=== PATIENT | male | born 1980 | race Caucasian/White ===

== ENCOUNTER 2023-09-24 23:54 | Observation (INO) | payer BC, OTHER ==
--- NOTE | 2023-09-25 00:51 | ED ---
Recheck HPI - General Chief Complaint: Psychiatric Symptoms Stated Complaint: Mental health Time Seen by Provider: 09/25/23 00:07 Source: patient, RN notes reviewed, old records reviewed Mode of arrival: ambulatory Limitations: no limitations - History of Present Illness Initial Comments: This is a 42-year-old male who is suicidal with plan. Patient does want to shoot himself with a gun. Patient does not have no history of drug or alcohol abuse. No history of significant psychiatric evaluation, patient does have increasing life stress with depression and anxiety. Patient has no current chest pain but is found to have severely elevated blood pressure in triage MD Complaint: abnormal lab (Severely elevated blood pressure), other (Psychiatric illness with depression) -: unknown Symptoms Since Prior Visit: no new symptoms Associated Symptoms: none Treatments Prior to Arrival: other (0) - Related Data Home Medications Medication Instructions Recorded Confirmed HYDROcodone/APAP 7.5-325MG [[place] 1 tab PO Q6HR PRN 08/05/15 08/05/15 7.5-325] Previous Rx's Medication Instructions Recorded Docusate [Colace] 100 mg PO BID #20 capsule 08/05/15 Allergies Allergy/AdvReac Type Severity Reaction Status Date / Time No Known Allergies Allergy Verified 09/24/23 23:59 Review of Systems ROS Statement: Those systems with pertinent positive or pertinent negative responses have been documented in the HPI. ROS Other: All systems not noted in ROS Statement are negative. Past Medical History Past Medical History: Hypertension History of Any Multi-Drug Resistant Organisms: None Reported Past Surgical History: Cholecystectomy, Orthopedic Surgery Additional Past Surgical History / Comment(s): left shoulder, right hand/wrist, knee Past Psychological History: No Psychological Hx Reported Smoking Status: Never smoker Past Alcohol Use History: None Reported Past Drug Use History: None Reported General Exam Limitations: no limitations General appearance: anxious, in distress Head exam: Present: atraumatic, normocephalic, normal inspection Eye exam: Present: normal appearance, PERRL, EOMI. Absent: scleral icterus, conjunctival injection, periorbital swelling ENT exam: Present: normal exam, mucous membranes moist Neck exam: Present: normal inspection. Absent: tenderness, meningismus, lymphadenopathy Respiratory exam: Present: normal lung sounds bilaterally. Absent: respiratory distress, wheezes, rales, rhonchi, stridor Cardiovascular Exam: Present: regular rate, normal rhythm, normal heart sounds. Absent: systolic murmur, diastolic murmur, rubs, gallop, clicks GI/Abdominal exam: Present: soft, normal bowel sounds. Absent: distended, tenderness, guarding, rebound, rigid Extremities exam: Present: normal inspection, full ROM, normal capillary refill. Absent: tenderness, pedal edema, joint swelling, calf tenderness Back exam: Present: normal inspection Neurological exam: Present: alert, oriented X3, CN II-XII intact Psychiatric exam: Present: normal affect, normal mood Skin exam: Present: warm, dry, intact, normal color. Absent: rash Course Vital Signs 09/24/23 09/25/23 09/25/23 23:57 00:43 01:15 Temperature 98 F Pulse Rate 72 77 66 Respiratory 18 16 18 Rate Blood Pressure 242/136 225/109 198/100 O2 Sat by Pulse 99 97 98 Oximetry 09/25/23 01:20 Temperature Pulse Rate 62 Respiratory 18 Rate Blood Pressure 184/95 O2 Sat by Pulse 97 Oximetry - Reevaluation(s) Reevaluation #1: 09/25/23 01:54 Medical records reviewed Reevaluation #2: 09/25/23 01:54 Patient's blood pressure is improving here in the ER Patient remains suicidal Reevaluation #3: 09/25/23 01:54 Patient informed of results questions answered Reevaluation #4: Was pt. sent in by a medical professional or institution (, PA, MEDICATION AIDE, urgent care, hospital, or residential...) When possible be specific @ -no Did you speak to anyone other than the patient for history (EMS, parent, family, police, friend...)? What history was obtained from this source @ -no Did you review nursing and triage notes (agree or disagree)? Why? @ -agree Are old charts reviewed (outside hosp., previous admission, EMS record, old EKG, old radiological studies, urgent care reports/EKG's, residential records)? Report findings @ -yes Differential Diagnosis (chest pain, altered mental status, abdominal pain women, abdominal pain men, vaginal bleeding, weakness, fever, dyspnea, syncope, headache, dizziness, GI bleed, back pain, seizure, CVA, palpatations, mental health, musculoskeletal)? @ -prior EKG interpreted by me (3pts min.). @ -yes X-rays interpreted by me (1pt min.). @ -yes negative for acute disease CT interpreted by me (1pt min.). @ -no U/S interpreted by me (1pt. min.). @ -no What testing was considered but not performed or refused? (CT, X-rays, U/S, labs)? Why? @ -none What meds were considered but not given or refused? Why? @ -none Did you discuss the management of the patient with other professionals (professionals i.e. , PA, MEDICATION AIDE, lab, RT, psych nurse, rn social work, section beamer, teacher, earth science technical officer, family caseworker)? Give summary @ -no Was smoking cessation discussed for >3mins.? @ -no Was critical care preformed (if so, how long)? @ -no Were there social determinants of health that impacted care today? How? (Homelessness, low income, unemployed, alcoholism, drug addiction, transportation, low edu. Level, literacy, decrease access to med. care, detention, rehab)? @ -none Was there de-escalation of care discussed even if they declined (Discuss DNR or withdrawal of care, Hospice)? DNR status @ -no What co-morbidities impacted this encounter? (DM, HTN, Smoking, COPD, CAD, Cancer, CVA, ARF, Chemo, Hep., AIDS, mental health diagnosis, sleep apnea, morbid obesity)? @ -none Was patient admitted / discharged? Hospital course, mention meds given and route, prescriptions, significant lab abnormalities, going to OR and other pertinent info. @ - Undiagnosed new problem with uncertain prognosis? @ -no Drug Therapy requiring intensive monitoring for toxicity (Heparin, Nitro, Insulin, Cardizem)? @ -no Were any procedures done? @ -no Diagnosis/symptom? @ - Acute, or Chronic, or Acute on Chronic? @ -Acute Uncomplicated (without systemic symptoms) or Complicated (systemic symptoms)? @ -Complicated Side effects of treatment? @ -no Exacerbation, Progression, or Severe Exacerbation? @ -exacerbation Poses a threat to life or bodily function? How? (Chest pain, USA, CT, pneumonia, PE, COPD, DKA, ARF, appy, cholecystitis, CVA, Diverticulitis, Homicidal, Suicidal, threat to staff... and all critical care pts) @ -yes Reevaluation #5: Differential Chest Pain: Stable Angina, Unstable Angina, STEMI, NSTEMI Aortic Dissection, Pneumothorax, Musculoskeletal, Esophageal Spasm GERD, Cholecystitis, Pancreatitis, Zoster, this is not meant to be an all-inclusive list. - Consultations Consultation #1: Spoke with bala who agrees to admit this patient Medical Decision Making - Medical Decision Making 42 male who presents to the ER for significant anxiety and stress reaction, patient is depressed with anxiety and suicidal. But patient has severe new onset hypertension with hypertensive urgency blood pressure 240/140, patient is on multiple blood pressure medications and this is a new onset hypertension patient will be admitted for blood pressure control and psychiatric evaluation - Lab Data Result diagrams: 09/25/23 01:02 Lab Results 09/25/23 09/25/23 09/25/23 Range/Units 00:39 01:02 01:02 WBC 9.1 (3.8-10.6) k/uL RBC 5.33 (4.30-5.90) m/uL Hgb 15.4 (13.0-17.5) gm/dL Hct 44.3 (39.0-53.0) % MCV 83.2 (80.0-100.0) fL MCH 29.0 (25.0-35.0) pg MCHC 34.8 (31.0-37.0) g/dL RDW 14.0 (11.5-15.5) % Plt Count 205 (150-450) k/uL MPV 8.2 Neutrophils % 69 % Lymphocytes % 21 % Monocytes % 6 % Eosinophils % 1 % Basophils % 1 % Neutrophils # 6.3 (1.3-7.7) k/uL Lymphocytes # 1.9 (1.0-4.8) k/uL Monocytes # 0.5 (0-1.0) k/uL Eosinophils # 0.1 (0-0.7) k/uL Basophils # 0.1 (0-0.2) k/uL Troponin I 0.044 H* (0.000-0.034) ng/mL Urine Opiates Screen Not Detected (NotDetected) Ur Oxycodone Screen Not Detected (NotDetected) Urine Methadone Screen Not Detected (NotDetected) Ur Barbiturates Screen Not Detected (NotDetected) U Tricyclic Antidepress Not Detected (NotDetected) Ur Phencyclidine Scrn Not Detected (NotDetected) Ur Amphetamines Screen Not Detected (NotDetected) U Methamphetamines Scrn Not Detected (NotDetected) U Benzodiazepines Scrn Not Detected (NotDetected) Urine Cocaine Screen Not Detected (NotDetected) U Marijuana (THC) Screen Not Detected (NotDetected) - EKG Data -: EKG Interpreted by Me (EKG is sinus bradycardia 50 SD 136 QRS 107 QTc 459) - Radiology Data Radiology results: report reviewed (Chest x-ray is negative for acute disease), image reviewed Critical Care Time Critical Care Time: Yes Total Critical Care Time: 31 Disposition Clinical Impression: Acute anxiety, Depression, Suicidal ideation, Hypertension, Hypertensive urgency Disposition: ADMITTED IP TO THIS [facility] Condition: Serious Is patient prescribed a controlled substance at d/c from ED?: No Referrals: None,Stated [Primary Care Provider] - 1-2 days Time of Disposition: 02:00
[2023-09-25] MEDS: LABETALOL 5 MG/ML VIAL MDV IVP STA (01:01)
[2023-09-25] MEDS: SODIUM CHLORIDE 0.9% 500 ML 500 ML IV STA (01:01)
[2023-09-25 01:29] LABS: Basophils # (A) 0.1 k/uL (0-0.2); Basophils % (A) 1 %; Eosinophils # (A) 0.1 k/uL (0-0.7); Eosinophils % (A) 1 %; HCT 44.3 % (39.0-53.0); HGB 15.4 gm/dL (13.0-17.5); Lymphocytes # (A) 1.9 k/uL (1.0-4.8); Lymphocytes % (A) 21 %; MCHC 34.8 g/dL (31.0-37.0); MCV 83.2 fL (80.0-100.0); Mean Platelet Volume 8.2; Monocytes # (A) 0.5 k/uL (0-1.0); Monocytes % (A) 6 %; Neutrophils # (A) 6.3 k/uL (1.3-7.7); Neutrophils % (A) 69 %; Platelet Count 205 k/uL (150-450); RBC 5.33 m/uL (4.30-5.90); WBC 9.1 k/uL (3.8-10.6)
[2023-09-25 01:41] LABS: Amphetamine Screen,Urine Not Detected (NotDetected); Barbiturate Screen,Urine Not Detected (NotDetected); Benzodiazepines Screen,Urine Not Detected (NotDetected); Cocaine Screen,Urine Not Detected (NotDetected); Methadone Screen, Urine Not Detected (NotDetected); Opiate Screen,Urine Not Detected (NotDetected); Oxycodone Screen, Urine Not Detected (NotDetected); Phencyclidine Screen,Urine Not Detected (NotDetected); Tricyclic Antidepressant,Urine Not Detected (NotDetected); Urn Cannabinoid Scrn Not Detected (NotDetected)
[2023-09-25] MEDS ORDERED: ONDANSETRON 4 MG/2 ML VIAL IVP PRN (01:51)
[2023-09-25] MEDS ORDERED: NALOXONE 0.4 MG/ML 1 ML VIAL IV PRN (01:51)
[2023-09-25 02:09] LABS: ALT 43 U/L (4-49); AST 52 U/L (17-59); African American GFR (CKD) >90 (>60 ml/min/1.73 sqM); Alcohol <10 mg/dL; Alkaline Phosphatase 95 U/L (38-126); Anion Gap 10 mmol/L; Blood Urea Nitrogen 16 mg/dL (9-20); Calcium 9.2 mg/dL (8.4-10.2); Carbon Dioxide 24 mmol/L (22-30); Chloride 108 mmol/L (98-107); Glucose 107 mg/dL (74-99); Magnesium 2.2 mg/dL (1.6-2.3); Non-African American GFR(CKD) >90 (>60 ml/min/1.73 sqM); Phosphorus 2.6 mg/dL (2.5-4.5); Sodium 142 mmol/L (137-145); Total Bilirubin 0.8 mg/dL (0.2-1.3)
[2023-09-25 02:17] LABS: NT-Pro-B-Type Natriuretic Pept 106 pg/mL
[2023-09-25] MEDS: hydrALAZINE HCL 20 MG/ML 1 ML VIAL IVP STA (02:38)
--- NOTE | 2023-09-25 04:28 | P.HPIM ---
History of Present Illness H&P Date: 09/25/23 Patient is a 42-year-old male with no known PMH who presents to the emergency room with complaints of depression and suicidal ideation. The patient reports that his recently left with his children and that he has not been able to see them for the past 5 days and that he is worried that she will take them from him permanently. He is a and has been contemplating suicide and has a concrete plan, although states that he does not wish to act due to the sake of his children. He has not seen a physician for over 10 years. He does report intermittent sharp left-sided chest discomfort which is nonexertional for the past several months. Denied experiencing shortness of breath, nausea, vomiting, diaphoresis, or dizziness. In the emergency room, the patient's blood pressure upon arrival was 242/136 with pulse 72. The patient does not have a prior history of high blood pressure. EKG revealed sinus bradycardia at 50 bpm with LVH and T wave inversion in leads II and V6. Laboratory evaluation was remarkable for troponin 0.044 with serum alcohol less than 10, potassium 3.0, and glucose 107. ED documentation reviewed and case discussed with ED provider. Review of systems: Pertinent positives and negatives as discussed in HPI, a complete review of systems was performed and all other systems are negative. Physical examination: Vital signs reviewed General: non toxic, no distress, appears at stated age, obese Derm: no unusual rashes/lesions, warm Head: atraumatic, normocephalic, symmetric Eyes: EOMI, no lid lag, anicteric sclera, pupils equal round reactive to light ENT: Nose and ears atraumatic Neck: No cervical lymphadenopathy, trachea midline, supple Mouth: no lip lesion, mucus membranes moist Cardiovascular: S1S2 reg, no murmur, positive dorsalis pedis pulse bilateral, no edema Lungs: CTA bilateral, no rhonchi, no rales, no accessory muscle use Abdominal: soft, nontender to palpation, no guarding Ext: muscle strength 5 out of 5 in all 4 extremities grossly, no gross muscle atrophy, no contractures, Neuro: CN II-XI grossly intact, no gross focal neuro deficits Psych: Alert, oriented, tearful affect Assessment: Hypertensive urgency Elevated troponin, suspect due to uncontrolled hypertension Depression and suicidal ideation Hypokalemia Imaging: EKG revealed sinus bradycardia at 50 bpm with LVH and T wave inversion in leads II and V6. Data Review: Laboratory evaluation was remarkable for troponin 0.044 with serum alcohol less than 10, potassium 3.0, and glucose 107. Plan: Start patient on Norvasc and avoid rapid overcorrection Cardiology consulted Trend troponin Cardiac monitoring Suicide precautions and psychiatry consult Replace potassium Check lipid panel and A1c DVT prophylaxis: Lovenox subcu The patient is admitted with an anticipated less than 2 midnight stay for evaluation of hypertensive urgency CODE STATUS: Full Code Discussed with: Patient Anticipated discharge place: Home Past Medical History Past Medical History: Hypertension History of Any Multi-Drug Resistant Organisms: None Reported Past Surgical History: Cholecystectomy, Orthopedic Surgery Additional Past Surgical History / Comment(s): left shoulder, right hand/wrist, knee Past Psychological History: No Psychological Hx Reported Smoking Status: Never smoker Past Alcohol Use History: None Reported Past Drug Use History: None Reported Medications and Allergies Home Medications Medication Instructions Recorded Confirmed Type Docusate [Colace] 100 mg PO BID #20 capsule 08/05/15 Rx HYDROcodone/APAP 7.5-325MG [[place] 1 tab PO Q6HR PRN 08/05/15 08/05/15 History 7.5-325] Allergies Allergy/AdvReac Type Severity Reaction Status Date / Time No Known Allergies Allergy Verified 09/24/23 23:59 Physical Exam Vitals: Vital Signs Temp Pulse Resp BP Pulse Ox 09/25/23 03:59 58 L 16 180/88 98 09/25/23 02:48 58 L 16 184/80 98 09/25/23 02:14 59 L 16 189/99 99 09/25/23 01:20 62 18 184/95 97 09/25/23 01:15 66 18 198/100 98 09/25/23 00:43 77 16 225/109 97 09/24/23 23:57 98 F 72 18 242/136 99 Intake and Output 09/24/23 09/24/23 09/25/23 14:59 22:59 06:59 Other: Weight 111.13 kg Results CBC & Chem 7: 09/25/23 01:02 09/25/23 01:02 Labs: Abnormal Lab Results - Last 24 Hours (Table) 09/25/23 09/25/23 Range/Units 01:02 01:02 Potassium 3.0 L (3.5-5.1) mmol/L Chloride 108 H (98-107) mmol/L Glucose 107 H (74-99) mg/dL Troponin I 0.044 H* (0.000-0.034) ng/mL
[2023-09-25] MEDS: POTASSIUM CHLORIDE ER 20 MEQ TAB.ER PO STA (04:36)
--- NOTE | 2023-09-25 07:45 | P.PN ---
Subjective Progress Note Date: 09/25/23 Hospital course: Patient is a very pleasant 42-year-old male with no reported past medical history but has not been evaluated by a physician in just over 10 years. He initially presented to the emergency department with complaints of depression and suicidal ideations reporting that his recently left with his children and he is afraid that she is going to take them from home permanently. Patient reported that he is a and has been contemplating suicide and does have a concrete plan although he would not like to act upon this plan due to the sake of his children. Upon arrival to the emergency department patient underwent evaluation and was found to have hypertensive urgency with a blood pressure of 242/136 with a heart rate of 72. Patient also admitted that he had been experiencing pain to his left anterior chest intermittently over the past several months. EKG was completed revealing sinus bradycardia at 50 bpm with T wave inversion in lateral leads I, II, and aVL and T wave abnormality in V6 with left ventricular hypertrophy, there was no noted ST depression or elevation upon personal review and interpretation. Labs were completed and reviewed. CBC unremarkable. BMP revealing hypokalemia with potassium of 3.0 and hyperchlor emia with chloride of 108 otherwise normal findings. Blood glucose was 107. Magnesium normal findings at 2.2. Liver profile unremarkable. Troponin was elevated at 0.044 with proBNP of 106. Urine drug screen was negative. Serum alcohol was also negative at less than 10. Patient was admitted under our services with consultation to cardiology and psychiatry. Physical exam: Patient seen and fully evaluated at bedside this morning. Patient slightly tearful upon assessment. Patient reports just having a rough time with home life recently. He currently denies having any chest pain, palpitations, shortness of breath, or experiencing any numbness/tingling/weakness/swelling in his extremities at this time. Vital signs reviewed and stable. General: Nontoxic, no distress and appears stated age. Derm: Skin warm and dry, normal coloration for ethnicity. Head: Atraumatic, normocephalic and symmetric. Eyes: EOMs intact, no lid lag, and anicteric sclera Mouth: no lip lesions, mucus membranes moist Cardiovascular: regular rate and rhythm with normal S1S2, no murmur, positive posterior tibial pulses bilaterally, and cap refill < 2 seconds. Lungs: Respirations even, regular, and unlabored on room air. Lungs CTA bilaterally, no rhonchi, no rales, no wheezing, and no accessory muscle usage. Abdominal: soft, nontender to palpation, no guarding, no appreciable organomegaly Ext: ROM intact. No gross muscle atrophy, no edema, no contractures Neuro: Speech clear, face symmetrical and CN II-XII grossly intact with no noted focal neuro deficits Psych: Alert and oriented to person, place, time, and situation. Appropriate and pleasant affect. Assessment and Plan of Care: Chest pain, rule out acute coronary event Elevated troponins Hypertensive urgency -Order placed for aspirin 324 mg p.o. x 1 dose followed by aspirin 81 mg daily and will start patient on atorvastatin 40 mg daily pending lipid profile results. -Order placed for chest x-ray -Cardiology consulted, started patient on clonidine 0.2 mg twice daily -Telemetry monitoring -Troponins trended overnight resulting at 0.044, 0.046, and 0.044. proBNP was 106. -Cardiac diet -Lipid profile and hemoglobin A1c was ordered with a.m. labs. -Echocardiogram to be completed Suicidal ideations with plan Depression -Suicide precautions in place -Consult placed to psychiatry, appreciate recommendations Data and imaging reviewed: -Troponins trended overnight resulting at 0.044, 0.046, and 0.044. -Vital signs reviewed. Blood pressure 173/95, heart rate 56, respiratory rate 18, and SpO2 of 97% on room air. CODE STATUS: Full code DVT prophylaxis: Lovenox Anticipated discharge date: Clinical course to determine Anticipated discharge place: Clinical course to determine Patient was seen independently by Nurse Pracitioner. This document was prepared using [employer] dictation software. Please allow for errors in packager hand, while rare they do occur. Uche Marc NP rendered care for this patient independently, reviewed the findings and plan as documented in the note above. I did not physically speak with or examine the patient on this date. Objective - Vital Signs Vital signs: Vital Signs Temp 98 F 09/24/23 23:57 Pulse 60 09/25/23 04:39 Resp 16 09/25/23 04:39 BP 181/94 09/25/23 04:39 Pulse Ox 98 09/25/23 04:39 FiO2 Intake & Output 09/24/23 09/25/23 09/25/23 18:59 06:59 18:59 Weight 111.13 kg - Labs CBC & Chem 7: 09/26/23 09:00 09/26/23 09:00 Labs: Abnormal Lab Results - Last 24 Hours (Table) 09/25/23 09/25/23 09/25/23 Range/Units 01:02 01:02 02:39 Potassium 3.0 L (3.5-5.1) mmol/L Chloride 108 H (98-107) mmol/L Glucose 107 H (74-99) mg/dL Troponin I 0.044 H* 0.046 H* (0.000-0.034) ng/mL 09/25/23 Range/Units 05:37 Potassium (3.5-5.1) mmol/L Chloride (98-107) mmol/L Glucose (74-99) mg/dL Troponin I 0.044 H* (0.000-0.034) ng/mL
[2023-09-25 08:43] LABS: Chol/HDL Ratio 4.82 Ratio
[2023-09-25] MEDS: ATORVASTATIN 40 MG TAB PO SCH (09:27)
[2023-09-25] MEDS: ENOXAPARIN 40 MG/0.4 ML SYRINGE SQ SCH (09:27)
[2023-09-25] MEDS: amLODIPine 10 MG TAB PO SCH (09:27)
[2023-09-25] MEDS: ASPIRIN 81 MG PO STA (09:27)
[2023-09-25] MEDS: LABETALOL 5 MG/ML VIAL MDV IVP PRN (10:47)
--- NOTE | 2023-09-25 11:31 | XR ---
EXAM: XR chest 1V portable CLINICAL INDICATION:Male, 42 years old with history of chest pain; [facility] COMPARISON: 08/05/2015 TECHNIQUE: Chest single view. FINDINGS: Lines/tubes/devices: EKG leads overlie the chest. No indwelling lines are seen. Cardiomediastinum: Cardiac silhouette appears normal in size. Unremarkable mediastinal silhouette. Vasculature: No increased pulmonary vasculature. Lungs/pleura: No consolidation, sizeable effusion, or visible pneumothorax. Bones/soft tissues: Bony thorax appears grossly intact as seen. Regional soft tissues appear unremarkable. IMPRESSION: No acute cardiopulmonary findings.
[2023-09-25] MEDS: cloNIDine HCL 0.2 MG TAB PO SCH (11:38)
[2023-09-25] MEDS ORDERED: haloperidoL 5 MG TAB PO PRN (14:17)
[2023-09-25] MEDS ORDERED: HALOPERIDOL LACTATE 5 MG/ML 1 ML VIAL IM PRN (14:17)
[2023-09-25] MEDS ORDERED: traZODone HCL 50 MG TAB PO PRN (14:17)
[2023-09-25] MEDS ORDERED: LORazepam 2 MG/ML INJ IM PRN (14:18)
[2023-09-25] MEDS ORDERED: LORazepam 1 MG TAB PO PRN (14:18)
--- NOTE | 2023-09-25 14:19 | CONS ---
CONSULTATION HISTORY OF PRESENT ILLNESS: This is a 42-year-old gentleman, came into the hospital with 2 issues. One was a suicidal ideation. One was accelerated hypertension. His blood pressure still remains elevated. He does not have that much of suicidal thought at this time. Pressure is down to 173/95. He has no known history of hypertension. Does not drink alcohol. Does not smoke on a regular basis. He has had some issues and he is at this time resting comfortably. His suicidal thoughts are also pretty much resolved. He feels better about himself. His laboratory data did not reveal any significant abnormalities. Troponin revealed 0.4, 3 values, all of which were flat. Renal function is normal. Potassium was low, has been supplemented. LDL cholesterol is 123. He is resting comfortably at the time of my evaluation without any chest pain or shortness of breath. PAST MEDICAL HISTORY: Unremarkable for any diabetes or CVA or CAD. There is a question of hypertension, but not on any medications. He is status post cholecystectomy and some orthopedic surgery. MEDICATIONS: None. He does take some pain medications, hydrocodone, and acetaminophen combination. ALLERGIES: He has no known allergies. PHYSICAL EXAMINATION: VITAL SIGNS: Blood pressure is elevated at 210/97 when I first saw him, came down to 173/95. NECK: No JVD. No carotid bruits. CARDIOVASCULAR: S1, S2 heard normally. No significant rub, murmur, or gallop. LUNGS: Clear. ABDOMEN: Soft, nontender. EXTREMITIES: Lower extremities reveal normal pulses. CENTRAL NERVOUS SYSTEM: Normal. IMPRESSION: 1. Accelerated hypertension. 2. Suicidal ideation, which seems to have resolved. RECOMMENDATIONS: I am recommending that we add amlodipine and also I will add clonidine 0.2 mg b.i.d., labetalol 10 mg IV push q.6 hours for systolic of more than 180 and beta colin in the form of metoprolol tartrate 25 mg t.i.d. Blood pressure has already improved. EKG revealed sinus mechanism with nonspecific ST-T changes. Based on clinical course, I will make further recommendations. MMODL / IJN: [id number] /
--- NOTE | 2023-09-25 14:27 | P.CN ---
Psychiatric Consult - . 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 Patient apparently does not have a psychiatric history according to ER report, was endorsing depression and anxiety and increasing life stressors. Patient was have found to have elevated blood pressure 240/140, troponins were elevated x 3. Urine drug screen was negative. Patient was seen laying in bed sleeping was awoken by telegraphic typewriter mechanic. He claims that he has been going through a lot of stress recently, has been feeling depressed and anxious. States that he has not been sleeping well and has not been eating well as well. He states that he believes his fiance was becoming psychotic and paranoid about him. He claims that they were having arguments and that she left him on 09/19. He states that she believes that he was putting cameras in the house and that he was spying on her. He states that "she has mental health struggles". He states that she took their kids and left and did not tell him where she was going. He states that he eventually found out that she was staying at her sister's house, states that her sister told him that he was not allowed to go and visit her and see the kids. He claims that he has been feeling depressed and sad, claims that he was having thoughts of suicide, to shoot himself next to a bonfire and then have himself fall back into the fire afterwards. He states that he is not having any homicidal ideations, Patient denies any auditory, visual hallucinations and denies any paranoia or delusions. Patients admits to using nicotine chew. He states that he does have several guns at home. Patient was fairly tearful on speaking with telegraphic typewriter mechanic about his stressors and about him feeling lonely at home. PAST PSYCHIATRIC HISTORY: Patient has no reported past psychiatric history. Patient denies being on any psychiatric medications. Patient denies any previous psychiatric hospitalizations. Patient denies any psychiatric outpatient follow-up. Claims that he saw a therapist several years ago however is not doing that any longer. Patient denies any history of suicide attempts in the past. Past Medical History: Hypertension History of Any Multi-Drug Resistant Organisms: None Reported Past Surgical History: Cholecystectomy, Orthopedic Surgery Additional Past Surgical History / Comment(s): left shoulder, right hand/wrist, knee Past Psychological History: No Psychological Hx Reported Smoking Status: Never smoker Past Alcohol Use History: None Reported Past Drug Use History: None Reported ALLERGIES: as per EMR. CHEMICAL DEPENDENCY HISTORY: as per HPI. FAMILY PSYCHIATRIC/SUBSTANCE USE HISTORY: Denies SOCIAL HISTORY: Patient was born and raised in [place] and also in [place]. He states that he completed high school and did some college. Claims that he does not have any legal history. 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 He is currently single, he lives alone in a house. MENTAL STATUS EXAM: General Appearance: Patient appears to be overweight, has several tattoos, stated age is alert, pleasant, and cooperative. Patient appears to have fair hygiene and grooming wearing hospital gown with fair eye contact. Behavior: Patient is tall, overweight, wearing glasses, tearful. He became angry when he found out that he was being admitted to the inpatient unit Speech: Patient's speech is fluent and nonpressured. Demanding at times Mood/Affect: Patient reports their mood is "depressed and sad", affect is congruent and tearful Suicidality/Homicidality: Patient denies having any suicidal or homicidal ideation intent or plan. Perceptions: Patient denies any visual hallucinations and denies any auditory hallucinations Though content/process: There is no evidence of any delusional thought content and thought process is linear and goal-directed. Minimizing his suicidal thoughts and depression Memory and concentration: AOX3, grossly intact for the purposes of this session. Can spell "WORLD" backwards Judgment and insight: Poor IMPRESSIONS: Suicidal ideations Major depressive disorder, without psychotic features Nicotine dependence PLAN: -At this time patient DOES meet criteria for inpatient psychiatric admission. -Would recommend the following medication changes/additions: Haldol and Ativan as needed for acute agitation/anxiety. Trazodone 50 mg nightly as needed for insomnia. Will await antidepressant medications until patient is transferred to the mental health unit and cleared by cardiology and medicine. -Continue 1:1 sitter for safety -Cannot leave AMA at this time. Patient will need a petition and certification if attempting to leave AMA. -When medically stable, and cleared by cardiology, patient is eligible for transfer to a psych bed when available. -Communicated plan to patient's nurse -Psychiatry will sign off at this time -Please contact with any questions. 09/25/23 14:18
[2023-09-25] MEDS: METOPROLOL TARTRATE 25 MG TAB PO SCH (15:53)
[2023-09-26 08:07] VITALS: RESP 18
[2023-09-26] MEDS: ASPIRIN 81 MG PO SCH (08:40)
[2023-09-26] MEDS: METOPROLOL TARTRATE 12.5 MG TAB PO SCH (09:07)
[2023-09-26 09:48] LABS: Basophils # (A) 0.1 k/uL (0-0.2); Basophils % (A) 1 %; Eosinophils # (A) 0.1 k/uL (0-0.7); Eosinophils % (A) 2 %; HCT 42.8 % (39.0-53.0); Lymphocytes # (A) 1.7 k/uL (1.0-4.8); Lymphocytes % (A) 25 %; MCH 28.3 pg (25.0-35.0); MCHC 32.7 g/dL (31.0-37.0); MCV 86.5 fL (80.0-100.0); Mean Platelet Volume 8.5; Monocytes # (A) 0.3 k/uL (0-1.0); Monocytes % (A) 5 %; Neutrophils # (A) 4.5 k/uL (1.3-7.7); Neutrophils % (A) 66 %; Platelet Count 183 k/uL (150-450); RBC 4.94 m/uL (4.30-5.90); RDW 14.2 % (11.5-15.5); WBC 6.8 k/uL (3.8-10.6)
[2023-09-26 10:02] LABS: Potassium 3.3 mmol/L (3.5-5.1)
[2023-09-26 10:03] LABS: ALT 39 U/L (4-49); AST 36 U/L (17-59); African American GFR (CKD) >90 (>60 ml/min/1.73 sqM); Albumin 3.6 g/dL (3.5-5.0); Alkaline Phosphatase 72 U/L (38-126); Anion Gap 9 mmol/L; Blood Urea Nitrogen 14 mg/dL (9-20); Carbon Dioxide 26 mmol/L (22-30); Chloride 105 mmol/L (98-107); Glucose 152 mg/dL (74-99); Non-African American GFR(CKD) >90 (>60 ml/min/1.73 sqM); Sodium 140 mmol/L (137-145); Total Bilirubin 0.8 mg/dL (0.2-1.3); Total Protein 6.4 g/dL (6.3-8.2)
--- NOTE | 2023-09-26 10:58 | CA ---
Transthoracic Echo Report Name: Cuate Orourke Age: 42 Gender: M : 1980 Exam Date: 09/25/2023 12:26 Exam Location: [facility] Ht (in): 67 Wt (lb): 245 Ordering Physician: Uche Marc Attending/Referring Phys: Freight Sorter Ayden Weinstein RDCS Procedure CPT: Indications: elevated trop, chest pain, htn urgency Cardiac Hx: Technical Quality: Technically difficult study Contrast 1: Definity Total Dose (mL): 3 Contrast 2: Total Dose (mL): MEASUREMENTS (Male / Female) Normal Values 2D ECHO LV Diastolic Diameter PLAX 5.6 cm 4.2 - 5.9 / 3.9 - 5.3 cm LV Systolic Diameter PLAX 3.6 cm IVS Diastolic Thickness 1.5 cm 0.6 - 1.0 / 0.6 - 0.9 cm LVPW Diastolic Thickness 1.6 cm 0.6 - 1.0 / 0.6 - 0.9 cm LV Relative Wall Thickness 0.6 LVOT Diameter 2.4 cm Aortic Root Diameter 3.9 cm LA Systolic Diameter LX 4.4 cm 3.0 - 4.0 / 2.7 - 3.8 cm DOPPLER AV Peak Velocity 156.0 cm/s AV Peak Gradient 9.7 mmHg AV Mean Velocity 110.6 cm/s AV Mean Gradient 5.4 mmHg AV Velocity Time Integral 31.1 cm LVOT Peak Velocity 126.6 cm/s LVOT Peak Gradient 6.4 mmHg LVOT Velocity Time Integral 28.8 cm LVOT Stroke Volume 129.8 cm??? LVOT Stroke Volume Index 58.9 ml/m??? AV Area Cont Eq vti 4.2 cm??? AV Area Cont Eq pk 3.7 cm??? Mitral E Point Velocity 94.4 cm/s Mitral A Point Velocity 91.1 cm/s Mitral E to A Ratio 1.0 MV Deceleration Time 222.6 ms MV E' Velocity 9.4 cm/s Mitral E to MV E' Ratio 10.0 PV Peak Velocity 108.3 cm/s PV Peak Gradient 4.7 mmHg FINDINGS Left Ventricle Left ventricular ejection fraction is estimated at 55-60 %. Normal left ventricular wall motion. No obvious regional wall motion abnormalities.left ventricular cavity size normal. Moderately increased left ventricular wall thickness. Right Ventricle Normal right ventricular size and function. Right Atrium Normal right atrial size. Left Atrium Mildly increased left atrial diameter. Mitral Valve No mitral regurgitation.mitral valve not well visualized. Aortic Valve No aortic regurgitation.aortic valve not well visualized. Tricuspid Valve No tricuspid regurgitation.tricuspid valve not well visualized. Pulmonic Valve Pulmonic valve not well visualized. Pericardium No pericardial effusion. Aorta Normal size aortic root. CONCLUSIONS Technically difficult study. Definity ECHO contrast used for improved visualization of the endocardial borders (inadequate visualization of two or more contiguous segments). 1. Normal left ventricle size and systolic function with moderate hypertrophy 2. Very limited Doppler study with his inability to make any conclusions Previewed by: Dr. Selvin Vail MD (Electronically Signed) Final Date: 26 September 2023 10:57
[2023-09-26 12:28] VITALS: TEMP 98.2
[2023-09-26 14:17] VITALS: BP 160/76; PULSE 55
--- NOTE | 2023-09-26 15:30 | P.PN ---
Subjective Progress Note Date: 09/26/23 Hospital course: Patient is a very pleasant 42-year-old male with no reported past medical history but has not been evaluated by a physician in just over 10 years. He initially presented to the emergency department with complaints of depression and suicidal ideations reporting that his recently left with his children and he is afraid that she is going to take them from home permanently. Patient reported that he is a and has been contemplating suicide and does have a concrete plan although he would not like to act upon this plan due to the sake of his children. Upon arrival to the emergency department patient underwent evaluation and was found to have hypertensive urgency with a blood pressure of 242/136 with a heart rate of 72. Patient also admitted that he had been experiencing pain to his left anterior chest intermittently over the past several months. EKG was completed revealing sinus bradycardia at 50 bpm with T wave inversion in lateral leads I, II, and aVL and T wave abnormality in V6 with left ventricular hypertrophy, there was no noted ST depression or elevation upon personal review and interpretation. Labs were completed and reviewed. CBC unremarkable. BMP revealing hypokalemia with potassium of 3.0 and hyperchlor emia with chloride of 108 otherwise normal findings. Blood glucose was 107. Magnesium normal findings at 2.2. Liver profile unremarkable. Troponin was elevated at 0.044 with proBNP of 106. Urine drug screen was negative. Serum alcohol was also negative at less than 10. Patient was admitted under our services with consultation to cardiology and psychiatry. Physical exam: Vital signs reviewed and stable. General: Nontoxic, no distress and appears stated age. Derm: Skin warm and dry, normal coloration for ethnicity. Head: Atraumatic, normocephalic and symmetric. Eyes: EOMs intact, no lid lag, and anicteric sclera Mouth: no lip lesions, mucus membranes moist Cardiovascular: regular rate and rhythm with normal S1S2, no murmur, positive po sterior tibial pulses bilaterally, and cap refill < 2 seconds. Lungs: Respirations even, regular, and unlabored on room air. Lungs CTA bilaterally, no rhonchi, no rales, no wheezing, and no accessory muscle usage. Abdominal: soft, nontender to palpation, no guarding, no appreciable organomegaly Ext: ROM intact. No gross muscle atrophy, no edema, no contractures Neuro: Speech clear, face symmetrical and CN II-XII grossly intact with no noted focal neuro deficits Psych: Alert and oriented to person, place, time, and situation. Appropriate and pleasant affect. Assessment and Plan of Care: Chest pain, rule out acute coronary event Elevated troponins Hypertensive urgency -Continue aspirin 81 mg daily and will start patient on atorvastatin 40 mg daily pending lipid profile results. -Chest x-ray was negative for acute cardiopulmonary process. -Echocardiogram showing preserved EF of 55 to 60% with moderate left ventricular hypertrophy. -Cardiology consulted, started patient on clonidine 0.2 mg twice daily and metoprolol 12.5 mg twice daily in addition to amlodipine 10 mg daily started by medicine team. -Telemetry monitoring. Blood pressure is much better controlled this morning with blood pressure 145/82 and heart rate of 53. -Troponins trended overnight resulting at 0.044, 0.046, and 0.044. proBNP was 106. -Cardiac diet -Lipid profile unremarkable with the exception of low HDL of 36.70. Hemoglobin A1c 6%. Suicidal ideations with plan Depression -Suicide precautions in place -Psychiatry following, recommending inpatient admission to mental health unit once cleared by cardiology team. Data and imaging reviewed: -Vital signs reviewed and stable. Blood pressure 145/82, heart rate 53, respiratory rate 18, temp 98.2 F, and SpO2 of 97% on room air. CODE STATUS: Full code DVT prophylaxis: Lovenox Anticipated discharge date: Clinical course to determine Anticipated discharge place: Clinical course to determine Patient was seen independently by Nurse Pracitioner. This document was prepared using [employer] MD dictation software. Please allow for errors in fisher gill net, while rare they do occur. Uche Marc NP rendered care for this patient independently, reviewed the findings and plan as documented in the note above. I did not physically speak with or examine the patient on this date. Objective - Vital Signs Vital signs: Vital Signs Temp 98 F 09/24/23 23:57 Pulse 53 L 09/26/23 07:36 Resp 18 09/26/23 07:36 BP 145/82 09/26/23 07:36 Pulse Ox 97 09/26/23 07:36 FiO2 - Labs CBC & Chem 7: 09/26/23 09:00 09/26/23 09:00 Labs: Abnormal Lab Results - Last 24 Hours (Table) 09/25/23 Range/Units 05:37 HDL Cholesterol 36.70 L (40.00-60.00) mg/dL
--- NOTE | 2023-09-26 15:36 | P.DS ---
Providers Date of admission: 09/25/23 01:51 Expected date of discharge: 09/26/23 Attending physician: Michael Larry MD Consults: 09/25/23 01:51 Consult Physician Routine Consulting Provider: Paras Henao Consult Reason/Comments: SI Do you want consulting provider notified?: Yes Consult Physician Routine Consulting Provider: Selvin Vail Consult Reason/Comments: HTN,elevTrop Do you want consulting provider notified?: Yes Primary care physician: Stated None Hospital Course: Patient medically cleared for discharge to inpatient mental health unit. Discharge Diagnosis: Chest pain, acute coronary event ruled out. Elevated troponins Hypertensive urgency Suicidal ideations with plan Depression Hospital course: Patient is a very pleasant 42-year-old male with no reported past medical history but has not been evaluated by a physician in just over 10 years. He initially presented to the emergency department with complaints of depression and suicidal ideations reporting that his recently left with his children and he is afraid that she is going to take them from home permanently. Patient reported that he is a and has been contemplating suicide and does have a concrete plan although he would not like to act upon this plan due to the sake of his children. Upon arrival to the emergency department patient underwent evaluation and was found to have hypertensive urgency with a blood pressure of 242/136 with a heart rate of 72. Patient also admitted that he had been experiencing pain to his left anterior chest intermittently over the past several months. EKG was completed revealing sinus bradycardia at 50 bpm with T wave inversion in lateral leads I, II, and aVL and T wave abnormality in V6 with left ventricular hypertrophy, there was no noted ST depression or elevation upon personal review and interpretation. Labs were completed and reviewed. CBC unremarkable. BMP revealing hypokalemia with potassium of 3.0 and hyperchloremia with chloride of 108 otherwise normal findings. Blood glucose was 107. Magnesium normal findings at 2.2. Liver profile unremarkable. Troponin was elevated at 0.044 with proBNP of 106. Urine drug screen was negative. Serum alcohol was also negative at less than 10. Patient was admitted under our services with consultation to cardiology and psychiatry. Troponins trended overnight resulting at 0.044, 0.046, and 0.044. Chest x-ray was negative for acute cardiopulmonary process. Lipid profile unremarkable with the exception of low HDL of 36.70. Hemoglobin A1c 6%. Echocardiogram showing preserved EF of 55 to 60% with moderate left ventricular hypertrophy. Patient was evaluated by rehabilitation engineer. Patient was also evaluated by psychiatrist recommending transfer to inpatient mental health unit once medically cleared and cleared by cardiology. Cardiology clearing patient from cardiac perspective for transfer to mental health unit. Medically, patient stable for transfer to mental health unit at this time. Petition and CERT were completed and placed on patient's chart. Patient was started on aspirin 81 mg daily, clonidine 0.2 mg twice daily, atorvastatin 40 mg daily, amlodipine 10 mg daily, and metoprolol 12.5 mg twice daily. Physical exam: Vital signs reviewed and stable. General: Nontoxic, no distress and appears stated age. Derm: Skin warm and dry, normal coloration for ethnicity. Head: Atraumatic, normocephalic and symmetric. Eyes: EOMs intact, no lid lag, and anicteric sclera Mouth: no lip lesions, mucus membranes moist Cardiovascular: regular rate and rhythm with normal S1S2, no murmur, positive posterior tibial pulses bilaterally, and cap refill < 2 seconds. Lungs: Respirations even, regular, and unlabored on room air. Lungs CTA bilaterally, no rhonchi, no rales, no wheezing, and no accessory muscle usage. Abdominal: soft, nontender to palpation, no guarding, no appreciable organomegaly Ext: ROM intact. No gross muscle atrophy, no edema, no contractures Neuro: Speech clear, face symmetrical and CN II-XII grossly intact with no noted focal neuro deficits Psych: Alert and oriented to person, place, time, and situation. Appropriate and pleasant affect. A total of 31 minutes of time were spent preparing this complex discharge summary. Pt was discharged on 09/26/2023 at 3:26 PM. Patient was seen independently by Nurse Practitioner. This document was prepared using [employer] dictation software. Please allow for errors in scorer helper while rare they do occur. Uche Marc NP rendered care for this patient independently, reviewed the findings and plan as documented in the note above. I did not physically speak with or examine the patient on this date. Patient Condition at Discharge: Stable Plan - Discharge Summary New Discharge Prescriptions: New Aspirin 81 mg PO DAILY tab cloNIDine HCL [Catapres] 0.2 mg PO BID tab Atorvastatin [Lipitor] 40 mg PO DAILY tab amLODIPine [Norvasc] 10 mg PO DAILY tab Metoprolol Tartrate [Lopressor] 12.5 mg PO BID tab Discharge Medication List Aspirin 81 mg PO DAILY tab 09/26/23 [Rx] Atorvastatin [Lipitor] 40 mg PO DAILY tab 09/26/23 [Rx] Metoprolol Tartrate [Lopressor] 12.5 mg PO BID tab 09/26/23 [Rx] amLODIPine [Norvasc] 10 mg PO DAILY tab 09/26/23 [Rx] cloNIDine HCL [Catapres] 0.2 mg PO BID tab 09/26/23 [Rx] Activity/Diet/Wound Care/Special Instructions: Patient is medically cleared and cleared by cardiology for transfer to inpatient psychiatric unit. Discharge Disposition: TRANSFER TO PSYCH HOSP/UNIT
--- NOTE | 2023-09-27 06:42 | PN ---
PROGRESS NOTE Mr. Orourke is in sinus rhythm. Blood pressure is in 130 to 140 systolic range, much improved. Current medical regimen is good for him. Echo revealed good systolic function. Advised the patient to refrain from salt, be compliant with medications, and he can be discharged and he will follow up with his PCP as an outpatient. Vitals are stable. S1-S2 heard normally. Lungs are clear. Abdomen and lower extremity exam unchanged. Central nervous system is normal. MMODL / IJN: [id number] /
== END 2023-09-26 22:50 ==
LOC: EC 23:54 → 3SCARD 09-25 01:51
PROVIDERS: ADMIT Internal Medicine; ATTEND Internal Medicine
DX: R45.851 Suicidal ideations (principal); F99 Mental disorder, not otherwise specified; F32.A Depression, unspecified; F41.9 Anxiety disorder, unspecified; I10 Essential (primary) hypertension; R00.1 Bradycardia, unspecified; I16.0 Hypertensive urgency; R07.9 Chest pain, unspecified; R79.89 Other specified abnormal findings of blood chemistry; E87.6 Hypokalemia; E87.8 Other disorders of electrolyte and fluid balance, not elsewhere classified; Z91.85 Personal history of military service; Z79.899 Other long term (current) drug therapy; Z90.49 Acquired absence of other specified parts of digestive tract; Z11.52 Encounter for screening for COVID-19
CPT/HCPCS: 96372; 96374; 96375; 96376; 82075; 36415; 93005; 93306; 83880; 80061; 80053 ×2; 83735 ×2; 84100; 84484; 85025 ×2; 80306; 80320; 83036; 87635; 71045; G0378 ×2; J0360; J1650; Q9957; J1920

== ENCOUNTER 2023-09-26 19:42 | Inpatient (IN) | payer BC, MEDICAID ==
[2023-09-26] MEDS ORDERED: HALOPERIDOL LACTATE 5 MG/ML 1 ML VIAL IM PRN (22:24)
[2023-09-26] MEDS ORDERED: ACETAMINOPHEN TAB 325 MG TAB PO PRN (22:24)
[2023-09-26] MEDS ORDERED: LORazepam 1 MG TAB PO PRN (22:24)
[2023-09-26] MEDS ORDERED: haloperidoL 5 MG TAB PO PRN (22:24)
[2023-09-26] MEDS ORDERED: LORazepam 2 MG/ML INJ IM PRN (22:24)
[2023-09-26] MEDS ORDERED: MAGNESIUM HYDROXIDE 2,400 MG/30 ML CUP PO PRN (22:24)
[2023-09-26] MEDS ORDERED: IBUPROFEN 600 MG TAB PO PRN (22:24)
[2023-09-27] MEDS ORDERED: MAG HYDROX/AL HYDROX/SIMETH 355 ML BOTTLE PO PRN
--- NOTE | 2023-09-27 02:53 | P.CONS ---
History of Present Illness - Reason for Consult Consult date: 09/27/23 - History of Present Illness The patient is a 42-year-old male with recently diagnosed hypertensive urgency who had initially presented to the emergency room with complaints of depression and suicidal ideation. Patient was also noted to have an elevated troponin with hypertensive urgency for which he was admitted to the medical service. He was evaluated by cardiology and deemed cleared for transfer to the mental health unit for depression. The patient underwent an echocardiogram which revealed an intact EF with moderate LVH. The patient was seen in the mental health unit following transfer. He reported no active complaints at the time of interview. Denied experiencing chest discomfort, shortness of breath, fever, chills, cough, nausea, vomiting, abdominal pain, diarrhea. The patient's blood pressure [facility] continues to be high with most recent 167/110. Review of systems: Pertinent positives and negatives as discussed in HPI, a complete review of systems was performed and all other systems are negative. Physical examination: General: non toxic, no distress, appears at stated age, normal weight Derm: no unusual rashes/lesions, no unusual ecchymoses, warm, dry Head: atraumatic, normocephalic, symmetric Eyes: EOMI, no lid lag, anicteric sclera ENT: Nose and ears atraumatic, no thrush, no pharyngeal erythema Neck: trachea midline, supple Mouth: no lip lesion, mucus membranes moist Cardiovascular: S1S2 reg, no murmur, no edema Lungs: CTA bilateral, no rhonchi, no rales , no accessory muscle use Abdominal: soft, nontender to palpation, no guarding Ext: no gross muscle atrophy, no contractures, Neuro: No gross focal neuro deficits noted Psych: Alert, oriented, appropriate affect Assessment: Uncontrolled hypertension Hypokalemia Depression and suicidal ideation Data Review: Laboratory evaluation was reviewed with potassium 3.3, glucose 152, A1c 6.0 Plan: Continue patient on Norvasc and add hydrochlorothiazide Replace potassium and monitor Defer management of depression and suicidal ideation to the primary psychiatry service Thank you for allowing us to participate in the care of this patient. We will follow peripherally. Do not hesitate to contact us with questions. Someone can be reached from the [facility] hospitalist group at all hours of the day at [phone]. Past Medical History Past Medical History: Hypertension Additional Past Medical History / Comment(s): Pt. has a history of S/S of malignant hyperthermia History of Any Multi-Drug Resistant Organisms: None Reported Past Surgical History: Cholecystectomy, Orthopedic Surgery Additional Past Surgical History / Comment(s): left shoulder, right hand/wrist, left knee Past Anesthesia/Blood Transfusion Reactions: Family Hisory of Malignant Hyperthermia Past Psychological History: No Psychological Hx Reported Smoking Status: Never smoker Past Alcohol Use History: None Reported Past Drug Use History: None Reported - Past Family History Mother Additional Family Medical History / Comment(s): Malignant hyperthermia Medications and Allergies Home Medications Medication Instructions Recorded Confirmed Type Aspirin 81 mg PO DAILY tab 09/26/23 Rx Atorvastatin [Lipitor] 40 mg PO DAILY tab 09/26/23 Rx Metoprolol Tartrate [Lopressor] 12.5 mg PO BID tab 09/26/23 Rx amLODIPine [Norvasc] 10 mg PO DAILY tab 09/26/23 Rx cloNIDine HCL [Catapres] 0.2 mg PO BID tab 09/26/23 Rx Allergies Allergy/AdvReac Type Severity Reaction Status Date / Time No Known Allergies Allergy Verified 09/25/23 09:36 Physical Exam Vitals: Vital Signs Temp Pulse Resp BP Pulse Ox 09/27/23 00:05 97.8 F 53 L 16 167/110 98 Intake and Output 09/26/23 09/26/23 09/27/23 14:59 22:59 06:59 Other: Weight 111.13 kg 112.6 kg
[2023-09-27] MEDS: hydrALAZINE HCL 50 MG TAB PO ONE (03:32)
[2023-09-27] MEDS: ATORVASTATIN 40 MG TAB PO SCH (09:34)
[2023-09-27] MEDS: ASPIRIN 81 MG PO SCH (09:34)
[2023-09-27] MEDS: cloNIDine HCL 0.2 MG TAB PO SCH (09:34)
[2023-09-27] MEDS: amLODIPine 10 MG TAB PO SCH (09:34)
[2023-09-27] MEDS: METOPROLOL TARTRATE 12.5 MG TAB PO SCH (09:34)
[2023-09-27] MEDS: hydroCHLOROthiazide 25 MG TAB PO SCH (09:34)
[2023-09-27] MEDS: NICOTINE 14MG/24HR PATCH TRANSDERM SCH (09:35)
[2023-09-27] MEDS ORDERED: MELATONIN 5 MG TABLET PO PRN (09:48)
--- NOTE | 2023-09-27 09:58 | P.HP ---
Psychiatric H&P - . H&P Date: 09/27/23 History & Physical: Allergies Allergy/AdvReac Type Severity Reaction Status Date / Time No Known Allergies Allergy Verified 09/25/23 09:36 Vital Signs Temp 98.1 F 09/27/23 06:45 Pulse 62 09/27/23 06:45 Resp 14 09/27/23 06:45 BP 144/85 09/27/23 06:45 Pulse Ox 98 09/27/23 03:28 FiO2 Intake & Output 09/26/23 09/27/23 09/27/23 18:59 06:59 18:59 Weight 112.6 kg 09/27/23 07:12 IDENTIFYING DATA: Patient is a 42-year-old male. 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 Patient was admitted medically, psychiatry was consulted. As per consult note, "he patient presented to the hospital early this morning with suicidal thoughts, the plan to shoot himself with his gun. Patient apparently does not have a psychiatric history according to ER report, was endorsing depression and anxiety and increasing life stressors. Patient was have found to have elevated blood pressure 240/140, troponins were elevated x 3. Urine drug screen was negative. Patient was seen laying in bed sleeping was awoken by race and sports book writer. He claims that he has been going through a lot of stress recently, has been feeling depressed and anxious. States that he has not been sleeping well and has not been eating well as well. He states that he believes his fiance was becoming psychotic and paranoid about him. He claims that they were having arguments and that she left him on 09/19. He states that she believes that he was putting cameras in the house and that he was spying on her. He states that "she has mental health struggles". He states that she took their kids and left and did not tell him where she was going. He states that he eventually found out that she was staying at her sister's house, states that her sister told him that he was not allowed to go and visit her and see the kids. He claims that he has been feeling depressed and sad, claims that he was having thoughts of suicide, to shoot himself next to a bonfire and then have himself fall back into the fire afterwards. He states that he is not having any homicidal ideations, Patient denies any auditory, visual hallucinations and denies any paranoia or delusions. Patients admits to using nicotine chew. He states that he does have several guns at home. Patient was fairly tearful on speaking with race and sports book writer about his stressors and about him feeling lonely at home." Upon today's interview, he states he's doing good, and that he has accepted that he is here, and he is going to make the best of it. admits that he could benefit from help with his depression and anxiety. he spoke about dealing with severe stressors at this time in his life. we spoke about different medication options. Denies any other concerns. States he slept well last night, and that his appetite is good. States he had one incident, and realized he needed to get help. Patient apologetic for behavior he was having previously. at this time patient is denying any Si or HI at tis time and denying any AH/VH. PAST PSYCHIATRIC HISTORY: Patient has no reported past psychiatric history. Patient denies being on any psychiatric medications. Patient denies any previous psychiatric hospitalizations. Patient denies any psychiatric outpatient follow-up. Claims that he saw a therapist several years ago however is not doing that any longer. Patient denies any history of suicide attempts in the past. PMH:As per ER note ALLERGIES: as per EMR CHEMICAL DEPENDENCY HISTORY: as per HPI FAMILY PSYCHIATRIC/SUBSTANCE USE HISTORY: denies. he does state that his mother did have malignant hyperthermia. SOCIAL HISTORY: Patient was born and raised in [place] and also in [place]. He states that he completed high school and did some college. Claims that he does not have any legal history. 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 He is currently single, he lives alone in a house. General Appearance: Patient appears to be overweight, has several tattoos, stated age is alert, pleasant, and cooperative. Patient appears to have fair hygiene and grooming wearing street clothes Behavior: Patient is sitting without agitation. Speech: Patient's speech is fluent and nonpressured. apologetic Mood/Affect: Patient reports their mood is "same", affect is congruent and constricyted Suicidality/Homicidality: Patient denies having any suicidal or homicidal ideation intent or plan. Perceptions: Patient denies any visual hallucinations and denies any auditory hallucinations Though content/process: There is no evidence of any delusional thought content and thought process is linear and goal-directed. apologetic. Memory and concentration: AOX3, grossly intact for the purposes of this session. Can spell "WORLD" backwards Judgment and insight: Poor STRENGTHS/WEAKNESSES: strength is that patient is resilient. Weakness is that patient has poor judgment and is impulsive INTELLECT: average IMPRESSIONS: Suicidal ideations Major depressive disorder, without psychotic features Nicotine dependence PLAN: -Patient is admitted under voluntary status to [facility]HU for stabilization of psychiatric symptoms and safety. Patient has signed adult voluntary form and medication consent and is placed in patient's chart. -Medications : Zoloft 25mg daily for mood/anxiety, Melatonin 5mg qhs prn for sleep. patient does have a family hx of malignant hyperthermia therefore will be cautious with medications. -Ativan and Haldol PRN for agitation/aggression -Patient was informed of the risks, benefits and side effects of the medication and patient verbally consented to taking the medications. -Internal Medicine consult to perform medical evaluation and physical. will seek further recommendations for HTN. -NRT - nicotine patch -SW on board for discharge planning. Encourage patient to participate in groups to work on coping skills. 09/27/23 09:37 09/27/23 09:55
[2023-09-27] MEDS: SERTRALINE 25 MG TAB PO SCH (10:17)
[2023-09-27] MEDS: SERTRALINE 50 MG TAB PO SCH (10:22)
[2023-09-27 11:08] LABS: African American GFR (CKD) >90 (>60 ml/min/1.73 sqM); Anion Gap 10 mmol/L; Blood Urea Nitrogen 15 mg/dL (9-20); Calcium 9.3 mg/dL (8.4-10.2); Carbon Dioxide 26 mmol/L (22-30); Chloride 106 mmol/L (98-107); Glucose 107 mg/dL (74-99); Non-African American GFR(CKD) >90 (>60 ml/min/1.73 sqM); Potassium 3.2 mmol/L (3.5-5.1); Sodium 142 mmol/L (137-145)
[2023-09-27 16:57] LABS: Chol/HDL Ratio 3.73 Ratio
[2023-09-27 17:09] LABS: LDL Cholesterol,Calculated 78.3 mg/dL (0.0-131.0)
[2023-09-28 17:22] LABS: African American GFR (CKD) >90 (>60 ml/min/1.73 sqM); Anion Gap 11 mmol/L; Blood Urea Nitrogen 19 mg/dL (9-20); Calcium 9.4 mg/dL (8.4-10.2); Carbon Dioxide 28 mmol/L (22-30); Chloride 102 mmol/L (98-107); Glucose 70 mg/dL (74-99); Non-African American GFR(CKD) >90 (>60 ml/min/1.73 sqM); Potassium 3.2 mmol/L (3.5-5.1); Sodium 141 mmol/L (137-145)
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
[2023-09-29 09:05] VITALS: PULSE 62; RESP 18; TEMP 97.3
[2023-09-29] MEDS: SERTRALINE 25 MG TAB PO ONE (09:50)
[2023-09-29] MEDS: POTASSIUM CHLORIDE ER 20 MEQ TAB.ER PO STA (09:50)
--- NOTE | 2023-09-29 10:08 | P.DS ---
Providers Date of admission: 09/26/23 22:17 Expected date of discharge: 09/29/23 Attending physician: Paras Henao MD Consults: 09/26/23 22:24 Consult Physician Routine Consulting Provider: Maxi Physician Consult Reason/Comments: H&P and medical Do you want consulting provider notified?: Yes Primary care physician: Stated None - Discharge Diagnosis(es) (1) Major depressive disorder without psychotic features Current Visit: Yes Status: Acute Priority: High (2) Suicidal ideation Current Visit: No Status: Acute Priority: High (3) Nicotine dependence Current Visit: No Status: Ruled-out Priority: Low Hospital Course: Admission HPI: Admission note was completed by chief writer "Patient presented to the hospital on 09/24. Patient was admitted medically, psychiatry was consulted. As per consult note, "he patient presented to the hospital early this morning with suicidal thoughts, the plan to shoot himself with his gun. Patient apparently does not have a psychiatric history according to ER report, was endorsing depression and anxiety and increasing life stressors. Patient was have found to have elevated blood pressure 240/140, troponins were elevated x 3. Urine drug screen was negative. Patient was seen laying in bed sleeping was awoken by chief writer. He claims that he has been going through a lot of stress recently, has been feeling depressed and anxious. States that he has not been sleeping well and has not been eating well as well. He states that he believes his fiance was becoming psychotic and paranoid about him. He claims that they were having arguments and that she left him on 09/19. He states that she believes that he was putting cameras in the house and that he was spying on her. He states that "she has mental health struggles". He states that she took their kids and left and did not tell him where she was going. He states that he eventually found out that she was staying at her sister's house, states that her sister told him that he was not allowed to go and visit her and see the kids. He claims that he has been feeling depressed and sad, claims that he was having thoughts of suicide, to shoot himself next to a bonfire and then have himself fall back into the fire afterwards. He states that he is not having any homicidal ideations, Patient denies any auditory, visual hallucinations and denies any paranoia or delusions. Patients admits to using nicotine chew. He states that he does have several guns at home. Patient was fairly tearful on speaking with chief writer about his stressors and about him feeling lonely at home." Upon today's interview, he states he's doing good, and that he has accepted that he is here, and he is going to make the best of it. admits that he could benefit from help with his depression and anxiety. he spoke about dealing with severe stressors at this time in his life. we spoke about different medication options. Denies any other concerns. States he slept well last night, and that his appetite is good. States he had one incident, and realized he needed to get help. Patient apologetic for behavior he was having previously. at this time patient is denying any Si or HI at tis time and denying any AH/VH. " Hospital course: Upon admission to the unit patient was directable and agreeable to commence treatment and signed adult voluntary form. Patient got along well with other patients on the unit and followed unit protocol. Patient was compliant with the medications and denied any side effects throughout hospital course. Patient was started on Zoloft and increase the dose of 50 mg daily for mood/anxiety. Patient was also on melatonin nightly as needed for sleep however did not take this. Patient spoke of his stressors and engaged in therapy both group and individual. Patient was also seen by medical team for history and physical exam. Patients BP was elevated prior to admission and was seen by medicine and cardiology and cleared. They will be continuing to adjust patients medications prior to d/c today and will be following up with his PCP. Throughout the course of the hospitalization patient gradually improved with regards to mood, anxiety, suicidal thoughts, sleep and became more future oriented with improved insight and judgment. On the day of discharge patient denied any suicidal or homicidal ideations intent or plan denied any auditory or visual hallucinations. Patient endorsed wanting to live for his children. The patient claims that he has a gun safe and the guns are locked away and that he [place] the [place] the [place]. He claims that he is willing to have his younger brother stay with him and verify that the guns/weapons are secured, SW to make contact with brother and confirm this. Patient denied any paranoia and did not endorse any delusions. Patient does not have a significant history of substance abuse and was counseled on abstaining from all substances including alcohol and marijuana. Patient was also counseled on the medications and need for regular compliance and was encouraged to follow-up with their outpatient appointment for mental health and also for primary care. Prior to discharge a family meeting will be arranged by social work assistant to answer any questions and ensure safety upon discharge. Mental status exam: General Appearance: Patient appears to be overweight, has glasses and longer hair, stated age is alert, pleasant, and cooperative. Patient is in no acute distress and has improved hygiene and grooming Behavior: Patient is calmly seated without any agitated behavior. Speech: Patient's speech is fluent and nonpressured. Mood/Affect: Patient reports their mood is "better", affect is congruent and euthymic. Suicidality/Homicidality: Patient denies having any suicidal or homicidal ideation intent or plan. Perceptions: Patient denies any auditory or visual hallucinations. Though content/process: There is no evidence of any delusional thought content and thought process is linear and goal-directed. More future oriented Memory and concentration: AOX3, grossly intact for the purposes of this session. Can spell "WORLD" backwards correctly. Judgment and insight: improved with guarded prognosis Impression: Suicidal ideations Major depressive disorder, without psychotic features Nicotine dependence Plan: -Continue with discharge today as patient has improved and stabilized psychiatrically and is not currently an imminent threat to himself and/or others. Patient will remain at chronically elevated risk for harm to self and/or others due to his impulsivity. -Continue medications: Zoloft 50 mg daily for mood/anxiety. -Patient was counseled on the need for medication compliance and appropriate follow-up at mental health and also primary care for medical issues. Patient verbalized understanding and agreed. -Social work to coordinate patient's discharge today to the care of his brother who will be staying with him at home and ensure that the environment is safe and guns are secured. Social work also to arrange for patients follow up appointments for psychiatric care along with follow up with primary care provider. -Patient counseled on abstaining from recreational drugs and marijuana and alcohol. Was informed/educated on the adverse effects on their physical and mental health. Patient verbally agreed and understood. -Patient was instructed to return to the hospital or seek immediate medical care if their psychiatric or medical symptoms do worsen or reoccur. Allergies Allergy/AdvReac Type Severity Reaction Status Date / Time No Known Allergies Allergy Verified 09/25/23 09:36 Laboratory Results Sodium 141 mmol/L (137-145) 09/28/23 16:37 Potassium 3.2 mmol/L (3.5-5.1) L 09/28/23 16:37 Chloride 102 mmol/L (98-107) 09/28/23 16:37 Carbon Dioxide 28 mmol/L (22-30) 09/28/23 16:37 Anion Gap 11 mmol/L 09/28/23 16:37 BUN 19 mg/dL (9-20) 09/28/23 16:37 Creatinine 1.01 mg/dL (0.66-1.25) 09/28/23 16:37 Est GFR (CKD-EPI)AfAm >90 (>60 ml/min/1.73 sqM) 09/28/23 16:37 Est GFR (CKD-EPI)NonAf >90 (>60 ml/min/1.73 sqM) 09/28/23 16:37 Glucose 70 mg/dL (74-99) L 09/28/23 16:[address] Glu mg/dL 131 mg/dL 09/27/23 10:08 Hemoglobin A1c 6.2 % (<=6.0) H 09/27/23 10:08 Calcium 9.4 mg/dL (8.4-10.2) 09/28/23 16:37 Triglycerides 154.00 mg/dL (0.00-149.00) H 09/27/23 10:08 Cholesterol 149.00 mg/dL (0.00-200.00) 09/27/23 10:08 LDL Cholesterol, Calc 78.3 mg/dL (0.0-131.0) 09/27/23 10:08 VLDL Cholesterol, Calc 30.80 mg/dL (5.00-40.00) 09/27/23 10:08 HDL Cholesterol 39.90 mg/dL (40.00-60.00) L 09/27/23 10:08 Cholesterol/HDL Ratio 3.73 Ratio 09/27/23 10:08 TSH 2.460 mIU/L (0.465-4.680) 09/27/23 10:08 Vital Signs Temp 97.3 F L 03/29/24 08:25 Pulse 62 09/29/23 08:25 Resp 18 09/29/23 08:25 BP 163/78 09/29/23 09:21 Pulse Ox 98 09/29/23 08:25 FiO2 Patient Condition at Discharge: Stable Plan - Discharge Summary Discharge Rx Participant: Yes New Discharge Prescriptions: New Atorvastatin [Lipitor] 40 mg PO DAILY 30 Days #30 tab Melatonin 5 mg PO HS PRN tab PRN Reason: sleep Ibuprofen [Motrin] 600 mg PO Q6HR PRN tab PRN Reason: Moderate Pain (Scale 4 To 6) Sertraline [Zoloft] 50 mg PO DAILY 30 Days #30 tab Continue Aspirin 81 mg PO DAILY 30 Days #30 tab Discontinued Atorvastatin [Lipitor] 40 mg PO DAILY tab No Action cloNIDine HCL [Catapres] 0.2 mg PO BID tab amLODIPine [Norvasc] 10 mg PO DAILY tab Metoprolol Tartrate [Lopressor] 12.5 mg PO BID tab Discharge Medication List Metoprolol Tartrate [Lopressor] 12.5 mg PO BID tab 09/26/23 [Rx] amLODIPine [Norvasc] 10 mg PO DAILY tab 09/26/23 [Rx] cloNIDine HCL [Catapres] 0.2 mg PO BID tab 09/26/23 [Rx] Aspirin 81 mg PO DAILY 30 Days #30 tab 09/29/23 [Rx] Atorvastatin [Lipitor] 40 mg PO DAILY 30 Days #30 tab 09/29/23 [Rx] Ibuprofen [Motrin] 600 mg PO Q6HR PRN tab 09/29/23 [Rx] Melatonin 5 mg PO HS PRN tab 09/29/23 [Rx] Sertraline [Zoloft] 50 mg PO DAILY 30 Days #30 tab 09/29/23 [Rx] Follow up Appointment(s)/Referral(s): [facility] [NON-STAFF] - 10/05/23 9:30 am ( [address] [place] [address]. Intake with [facility]) Patient Instructions/Handouts: Depression (DC), Hypertensive Crisis (DC), Hypertension (DC) Activity/Diet/Wound Care/Special Instructions: Avoid the use of street drugs and alcohol. Take all prescriptions as prescribed. When you are in need of refills on your medications, please contact your medical provider and/or outpatient psychiatrist to have this done. Please go to scheduled outpatient appointment for aftercare treatment. If symptoms return or become worse, call the crisis line at and/or go to the nearest emergency room for evaluation. Discharge Disposition: HOME SELF-CARE
[2023-09-29 10:59] VITALS: BP 128/72
[2023-09-30] MEDS ORDERED: SERTRALINE 50 MG TAB PO SCH (09:00)
== END 2023-09-29 11:56 | disposition home or self-care (01) | DRG 885 ==
LOC: 3MHU 22:17
PROVIDERS: ADMIT Psychiatry & Neurology Psychiatry; ATTEND Psychiatry & Neurology Psychiatry
DX: F32.2 Major depressive disorder, single episode, severe without psychotic features (principal); R45.851 Suicidal ideations; I16.0 Hypertensive urgency; I10 Essential (primary) hypertension; F41.9 Anxiety disorder, unspecified; F17.290 Nicotine dependence, other tobacco product, uncomplicated; E87.6 Hypokalemia; R79.89 Other specified abnormal findings of blood chemistry; Z63.0 Problems in relationship with spouse or partner; Z84.89 Family history of other specified conditions; Z79.82 Long term (current) use of aspirin; Z79.899 Other long term (current) drug therapy
CPT/HCPCS: 80048; 80061; 83036; 84443